=== PATIENT | male | born 2000 | race Caucasian/White ===

== ENCOUNTER 2020-01-29 22:13 | Emergency (ER) | payer OTHER ==
--- NOTE | 2020-01-29 23:50 | EDM.PDOC ---
ED HPI GENERAL MEDICAL PROBLEM - General Chief Complaint: Head Injury Stated Complaint: HEAD INJURY Time Seen by Provider: 01/29/20 22:24 Source of Information: Reports: Patient History Limitations: Reports: No Limitations - History of Present Illness INITIAL COMMENTS - FREE TEXT/NARRATIVE: The patient presents with a head injury. He was playing softball and running past second and he collided with another player. He was knocked out for a second. He had some vision changes for a few minutes. He has a headache now and some nausea but no vomiting. He has no numbness or weakness. He has no blurry vision or double vision now. He has no fever, chills, cough, congestion, runny nose, chest pain, shortness of breath, or abdominal pain. He has no neck pain. Onset: Sudden Duration: Hour(s): (1.5) Location: Reports: Head Quality: Reports: Sharp Severity: Moderate Improves with: Reports: None Worsens with: Reports: None Associated Symptoms: Reports: Headaches, Nausea/Vomiting. Denies: Chest Pain, Cough, Fever/Chills, Shortness of Breath Treatments [employer]: Reports: NSAIDS Headache Pain Score (Numeric/FACES): 10 - Related Data Allergies Allergy/AdvReac Type Severity Reaction Status Date / Time No Known Allergies Allergy Verified 01/29/20 22:26 Home Meds: Home Meds . [No Known Home Meds] 01/29/20 [History] Past Medical History - Past Health History Medical/Surgical History: Denies Medical/Surgical History Neurological History: Reports: Concussion Social & Family History - Caffeine Use Caffeine Use: Reports: Energy Drinks - Recreational Drug Use Recreational Drug Use: No ED ROS GENERAL - Review of Systems Review Of Systems: See Below Constitutional: Reports: No Symptoms HEENT: Reports: No Symptoms Respiratory: Reports: No Symptoms Cardiovascular: Reports: No Symptoms Endocrine: Reports: No Symptoms GI/Abdominal: Reports: Nausea. Denies: Abdominal Pain, Vomiting : Reports: No Symptoms Musculoskeletal: Reports: No Symptoms Neurological: Reports: Headache ED EXAM, HEAD INJURY - Physical Exam Exam: See Below Exam Limited By: No Limitations General Appearance: Alert, No Apparent Distress Head: Other (Pain upon palpation with edema to the left lateral eyebrow) Eyes: Bilateral Eye: EOMI Ears: Normal External Exam Nose: Normal Inspection Neck: Non-Tender, Normal Alignment, Normal Inspection Respiratory: No Respiratory Distress, Lungs Clear, Normal Breath Sounds Cardiovascular: Regular Rate, Rhythm, No Edema, No Murmur GI/Abdominal Exam: Soft, Non-Tender, No Organomegaly, No Mass Back Exam: Normal Inspection Extremities: Normal Inspection Course - Vital Signs Last Recorded V/S: Last Vital Signs Temp 97.3 F 01/29/20 22:19 Pulse 97 01/29/20 22:19 Resp 18 01/29/20 22:19 BP Pulse Ox 7 L 01/29/20 22:19 - Orders/Labs/Meds Orders: Active Orders 24 hr Category Date Time Status Head wo Cont [CT] Stat Exams 01/29/20 22:33 Taken - Re-Assessments/Exams Free Text/Narrative Re-Assessment/Exam: 01/29/20 23:[address] of his head and it shows nothing acute. He has a concussion. I will discharge him home. Departure - Departure Time of Disposition: 23:50 Disposition: Home, Self-Care 01 Condition: Good Clinical Impression: Concussion injury of brain Head injury Qualifiers: Encounter type: initial encounter Qualified Code(s): S09.90XA - Unspecified injury of head, initial encounter - Discharge Information *PRESCRIPTION DRUG MONITORING PROGRAM REVIEWED*: Not Applicable *COPY OF PRESCRIPTION DRUG MONITORING REPORT IN PATIENT ETHAN: Not Applicable Referrals: PCP,None [Primary Care Provider] - Forms: ED Department Discharge, ED Return to Work/School Form Additional Instructions: Take tylenol or motrin for pain. Please return if you are worse. Sepsis Event Note (ED) - Evaluation Sepsis Screening Result: No Definite Risk - Focused Exam Vital Signs: Vital Signs Temp Pulse Resp Pulse Ox 01/29/20 22:19 97.3 F 97 18 7 L - My Orders Last 24 Hours: My Active Orders 01/29/20 22:33 Head wo Cont [CT] Stat - Assessment/Plan Last 24 Hours: My Active Orders 01/29/20 22:33 Head wo Cont [CT] Stat
--- NOTE | 2020-01-30 05:56 | CT ---
Head CT Technique: Multiple axial sections through the brain were obtained. Intravenous contrast was not utilized. Comparison: No prior intracranial imaging is available. Findings: Ventricles along with basal cisterns and sulci over the convexities are within normal limits for the patient's age. No abnormal parenchymal densities are seen. No evidence of intracranial hemorrhage. No midline shift or mass-effect is appreciated. Bone window settings were reviewed. Visualized mastoid sinuses and visualized paranasal sinuses show nothing acute. No acute calvarial finding is appreciated. Impression: 1. Nothing acute is appreciated on noncontrast head CT study. Diagnostic code #1 This report was dictated in MDT I agree with preliminary report from [facility], finalized on 01/30/20, 12:01 AM Central Daylight Time
== END 2020-01-30 00:01 | disposition home or self-care (01) ==
LOC: JD.ED 22:13
DX: S06.0X9A Concussion with loss of consciousness of unspecified duration, initial encounter (principal); W51.XXXA Accidental striking against or bumped into by another person, initial encounter; Y93.64 Activity, baseball
CPT/HCPCS: 70450; 70450-26; 99282; 99283-25